=== PATIENT | male | born 1970 | race Caucasian/White ===

== ENCOUNTER 2018-09-04 08:49 | Emergency (ER) | payer SELFPAY ==
[~2018-09-04] VITALS: Ht 167.6 cm; Wt 74.0 kg
[2018-09-04 08:55] VITALS: BP 172/76
--- NOTE | 2018-09-04 09:03 | PHYS DOC ---
Adult General Chief Complaint Chief Complaint: SHOULDER INJURY HPI HPI Patient is a 48 year old male with no significant medical history who presents to the ED today complaining of 10 out of 10 left shoulder pain worse on range of motion began the day before yesterday after he fell down a couple steps. Patient denies any loss of consciousness. Denies hitting his head on the ground. Denies anything specifically relieving the pain. Describes the pain as throbbing and constant. Review of Systems Review of Systems Constitutional: Denies fever or chills [] Musculoskeletal: Reports left shoulder pain Integument: Denies rash or skin lesions [] Neurologic: Denies headache, focal weakness or sensory changes [] All other systems were reviewed and found to be within normal limits, except as documented in this note. Allergies Allergies Allergies Coded Allergies Type Severity Reaction Last Updated Verified No Known Drug Allergies 09/04/18 No Physical Exam Physical Exam Constitutional: Well developed, well nourished, no acute distress, non-toxic appearance. [] Skin: Warm, dry, no erythema, no rash. [] Back: No tenderness, no CVA tenderness. [] Extremities: Left distal ACM appears deformed. Tenderness on palpation of the ACM joint. Full passive as well as active range of motion to the left shoulder. Adequate radial, medial, ulnar sensation to the left upper extremity. +2 left radial pulse. Cap refill less than 2 seconds the left fingers. Neurologic: Alert and oriented X 3, normal motor function, normal sensory function, no focal deficits noted. [] Psychologic: Affect normal, judgement normal, mood normal. [] Current Patient Data Vital Signs Vital Signs Date Time Temp Pulse Resp B/P (MAP) Pulse Ox O2 Delivery O2 Flow Rate FiO2 09/04/18 08:55 98.1 6 18 172/76 (108) 96 98.1 EKG EKG [] Radiology/Procedures Radiology/Procedures []PROCEDURE: SHOULDER 2+V LEFT Examination: SHOULDER 2+V LEFT History: Fell, pain, limited range of motion Comparison/Correlation: None Findings: 3 images of the left shoulder were obtained. Acromioclavicular and glenohumeral joints are unremarkable. Exophytic bony density along the superior aspect of the lateral acromion is present. Minimal extension of this bony density along the undersurface of the acromion also seen. Left upper lung is unremarkable. Partially visualized left ribs are intact. Impression: Density about the acromion is noted. This raises question of osteochondroma. No definite findings for acute fracture. If symptoms persist, consider further imaging with MRI if able. Electronically signed by: Perico Larose MD (09/04/2018 9:47 AM) [id number] DICTATED and SIGNED BY: PERICO LAROSE MD DATE: 09/04/18 0947 Course & Med Decision Making Course & Med Decision Making Pertinent Labs and Imaging studies reviewed. (See chart for details) This is a 48-year-old male patient presented to the ED today with left shoulder pain that began a couple days ago after he fell down some steps. Left shoulder x-rays interpreted by radiologist were negative for any acute findings, noted for possible osteochondroma with recommendation for MRI if symptoms persist. Results were communicated to patient. Discharged with diclofenac. Ice elevation encouraged. Provided orthopedic doctor for follow-up. Dragon Disclaimer Dragon Disclaimer This electronic medical record was generated, in whole or in part, using a voice recognition dictation system. Departure Departure Impression: Primary Impression: Contusion of left shoulder Additional Impressions: Fall down steps Osteochondroma of left scapula Disposition: HOME, SELF-CARE Condition: STABLE Referrals: RICKEY BRITTON MD follow up in 1 week Patient Instructions: Contusion Additional Instructions: You were evaluated in the emergency room for left shoulder contusion. Your left shoulder x-rays are negative for any acute findings, you were noted to have Osteochondroma of the shoulder which is an overgrowth of cartilage or bon. Please follow up with the orthopedic doctor in 1 week if symptoms continue Scripts Diclofenac Sodium (DICLOFENAC SODIUM) 50 Mg Tablet.dr 1 TAB PO BID, #20 TAB 0 Refills Prov: ROCHELLEFLORINAMARY FINK 09/04/18 Problem Qualifiers Primary Impression: Contusion of left shoulder Encounter type: initial encounter Qualified Codes: S40.012A - Contusion of left shoulder, initial encounter Additional Impressions: Fall down steps Encounter type: initial encounter Qualified Codes: W10.8XXA - Fall (on) (from) other stairs and steps, initial encounter MARY SPARKS APRN Sep 04, 2018 09:03
--- NOTE | 2018-09-04 09:49 | RAD ---
Examination: SHOULDER 2+V LEFT History: Fell, pain, limited range of motion Comparison/Correlation: None Findings: 3 images of the left shoulder were obtained. Acromioclavicular and glenohumeral joints are unremarkable. Exophytic bony density along the superior aspect of the lateral acromion is present. Minimal extension of this bony density along the undersurface of the acromion also seen. Left upper lung is unremarkable. Partially visualized left ribs are intact. Impression: Density about the acromion is noted. This raises question of osteochondroma. No definite findings for acute fracture. If symptoms persist, consider further imaging with MRI if able. Electronically signed by: Perico Asif MD (09/04/2018 9:47 AM) [id number]
[2018-09-04] MEDS ORDERED: DICL50TA4 PO (10:01)
== END 2018-09-04 10:17 | disposition home or self-care (01) ==
LOC: ER 08:49
DX: S40.012A Contusion of left shoulder, initial encounter (principal); D16.02 Benign neoplasm of scapula and long bones of left upper limb; W10.9XXA Fall (on) (from) unspecified stairs and steps, initial encounter; Y93.89 Activity, other specified; Y92.89 Other specified places as the place of occurrence of the external cause; Y99.8 Other external cause status
CPT/HCPCS: 73030; 99284

== ENCOUNTER 2018-09-20 15:24 | Emergency (ER) | payer SELFPAY ==
[~2018-09-20] VITALS: Ht 167.6 cm; Wt 72.6 kg
[2018-09-20 15:24] VITALS: BP 136/83
[~2018-09-20 15:24] MED LIST: DICL50TA4 PO
[2018-09-20] MEDS ORDERED: NAPR500T8 PO (15:44)
--- NOTE | 2018-09-20 15:44 | PHYS DOC ---
Past Medical History Past Medical History: No Pertinent History Past Surgical History: Other Additional Past Surgical Histo: cyst removal Smoking: Cigarettes, Less than 1pk/day Alcohol Use: None Drug Use: None Adult General Chief Complaint Chief Complaint: SHOUDLER [facility] HPI Patient is a 48 year old male presents to the ER is left shoulder pain has been ongoing since February. The patient states that he was seen here last week for the same problem. The patient states that he has been taking ibuprofen 800 mg at home which is not working however he did say that he was prescribed naproxen and it was helping. The patient states that he last took ibuprofen a couple days ago. Rates his pain as 10 out of 10 in severity and sharp and throbbing. The patient states he is not seeing an orthopedic doctor at this time. Review of Systems Review of Systems Constitutional: Denies fever or chills [] Eyes: Denies change in visual acuity, redness, or eye pain [] HENT: Denies nasal congestion or sore throat [] Respiratory: Denies cough or shortness of breath [] Cardiovascular: No additional information not addressed in HPI [] GI: Denies abdominal pain, nausea, vomiting, bloody stools or diarrhea [] : Denies dysuria or hematuria [] Musculoskeletal: Reports L shoulder pain. Integument: Denies rash or skin lesions [] Neurologic: Denies headache, focal weakness or sensory changes [] Endocrine: Denies polyuria or polydipsia [] Complete systems were reviewed and found to be within normal limits, except as documented in this note. Current Medications Current Medications Current Medications Medications (Trade) Dose Ordered Sig/[facility] Start Time Stop Time Status Last Admin Dose Admin Ketorolac Tromethamine (Toradol Im) 30 mg 1X ONCE 09/20/18 15:45 09/20/18 15:46 UNV Allergies Allergies Allergies Coded Allergies Type Severity Reaction Last Updated Verified No Known Drug Allergies 09/04/18 No Physical Exam Physical Exam Constitutional: Well developed, well nourished, no acute distress, non-toxic appearance. HENT: Normocephalic, atraumatic, bilateral external ears normal, oropharynx moist, no oral exudates, nose normal. Eyes: PERRLA, EOMI, conjunctiva normal, no discharge. Neck: Normal range of motion, no tenderness, supple, no stridor. Cardiovascular:Heart rate regular rhythm, no murmur Lungs & Thorax: Bilateral breath sounds clear to auscultation Abdomen: Bowel sounds normal, soft, no tenderness, no masses, no pulsatile masses. Skin: Warm, dry, no erythema, no rash. Back: No tenderness, no CVA tenderness. Extremities: Tenderness to L shoulder, reduced range of motion, + drop arm test. Neurologic: Alert and oriented X 3, normal motor function, normal sensory function, no focal deficits noted. Psychologic: Affect normal, judgement normal, mood normal. EKG EKG [] Radiology/Procedures Radiology/Procedures [] Course & Med Decision Making Course & Med Decision Making Pertinent Labs and Imaging studies reviewed. (See chart for details) The patient states he recently had a negative x-ray. Appears to have a rotator cuff issue. Will refer to orthopedics. Will prescribe more Naproxen and give Toradol in ER. Will also place in sling. Dragon Disclaimer Dragon Disclaimer This electronic medical record was generated, in whole or in part, using a voice recognition dictation system. Departure Departure Impression: Primary Impression: Shoulder pain, left Disposition: 01 HOME, SELF-CARE Condition: STABLE Referrals: NO PCP (PCP) LIBAN WHARTON MD Patient Instructions: Shoulder Pain Additional Instructions: Thank you for visiting [facility]. We appreciate you trusting us with your care. If any additional problems come up don't hesitate to return to visit us. Please follow up with your primary care provider so they can plan additional care if needed and know about the problem that you had. If symptoms worsen come back to the Emergency Department. Any concerning symptoms that start such as chest pain, shortness of air, weakness or numbness on one side of the body, running high fevers or any other concerning symptoms return to the ER. Please fill your medications at any pharmacy and follow the prescription instructions. Please follow up with Orthopedics. Scripts Naproxen (NAPROXEN) 500 Mg Tablet.dr 1 TAB PO BID, #60 TAB 1 Refill Prov: RAHEL RUSH APRN 09/20/18 Problem Qualifiers Primary Impression: Shoulder pain, left Chronicity: acute Qualified Codes: M25.512 - Pain in left shoulder RAHEL RUSH APRN Sep 20, 2018 15:44
[2018-09-20] MEDS ORDERED: KETOROLAC 30 MG/ML VIAL. IM ONE (15:45)
== END 2018-09-20 15:59 | disposition home or self-care (01) ==
LOC: ER 15:24
DX: M25.512 Pain in left shoulder (principal); F17.210 Nicotine dependence, cigarettes, uncomplicated
CPT/HCPCS: 96372; 99283; J1885

== ENCOUNTER → 2020-03-23 | Outpatient (CLI) | payer OTHER ==
[~2020-03-23] MED LIST changes: +NAPR500T8 PO
--- NOTE | 2020-03-23 13:16 | RAD ---
XR LUMBAR SPINE 2-3V DATE: 03/23/2020 10:44 AM INDICATION: LOW BACK PAIN COMPARISON: None. FINDINGS: Five non-rib bearing lumbar-type vertebral bodies are present. Bones/Alignment: No evidence of acute compression fracture. There is no listhesis. Joints: There is no disc space loss. Miscellaneous: None. IMPRESSION: No osseous abnormalities. Electronically signed by: Keon Thurman MD (03/23/2020 1:13 PM) [id number]
--- NOTE | 2020-03-23 13:19 | RAD ---
XR KNEE 1-2 VIEWS DATE: 03/23/2020 10:44 AM INDICATION: Reason: BILATERAL KNEE PAIN. LUMBAR SPINE PAIN. / Spl. Instructions: / History: COMPARISON: None. FINDINGS: Right: There is no evidence of acute fracture or dislocation. The joint spaces are normal. There is n o joint effusion. Left: There is no evidence of acute fracture or dislocation. The joint spaces are normal. There is no joint effusion. IMPRESSION: Normal exam Electronically signed by: Keon Thurman MD (03/23/2020 1:16 PM) [id number]
== END ==
LOC: RAD 10:23
PROVIDERS: ATTEND Surgery
DX: M54.5 Low back pain (principal); M25.561 Pain in right knee; M25.562 Pain in left knee
CPT/HCPCS: 72100; 73560-50

== ENCOUNTER → 2020-12-19 | Outpatient (CLI) | payer OTHER ==
--- NOTE | 2020-12-19 10:47 | RAD ---
EXAM: XR CERVICAL SPINE 2-3V. HISTORY: Neck pain. COMPARISON: None. FINDINGS: Degenerative disc disease is mild to moderate at C6-7. No fractures are identified. There i s no prevertebral soft tissue swelling. Alignment is maintained. IMPRESSION: 1. Mild to moderate degenerative disc disease at C6-7. Electronically signed by: Mary Head MD (12/19/2020 10:44 AM) [id number]
== END ==
LOC: RAD 09:58
PROVIDERS: ATTEND Family Medicine
DX: Z02.71 Encounter for disability determination (principal); M50.323 Other cervical disc degeneration at C6-C7 level
CPT/HCPCS: 72040